=== PATIENT | male | born 1980 | race Caucasian/White ===

== ENCOUNTER → 2018-06-07 | Outpatient (CLI) | payer BC, OTHER ==
--- NOTE | 2018-06-07 14:36 | XR ---
Lumbar spine HISTORY: Left sciatica, strain 3 weeks ago, pain 5 views of the lumbosacral spine Lumbar vertebral bodies show preserved height, alignment, and bone mineralization. No evident spondyl olysis. Disc spaces are mildly reduced L4-5, L5-S1, mild spondylosis. No paraspinal mass. IMPRESSION: Mild degenerative disc disease, consider lumbar MRI.
== END | disposition home or self-care (01) ==
LOC: RADXRYALE 12:12
PROVIDERS: ATTEND Internal Medicine
DX: M51.16 Intervertebral disc disorders with radiculopathy, lumbar region (principal)
CPT/HCPCS: 72110